=== PATIENT | male | born 1935 | race Caucasian/White ===

== ENCOUNTER 2016-06-30 17:07 | Emergency (ER) | payer BC, OTHER ==
[~2016-06-30] VITALS: Ht 165.1 cm; Wt 65.0 kg
[2016-06-30 17:16] VITALS: Ht 165.1 cm; Wt 65.0 kg
[2016-06-30] MEDS ORDERED: NICARDipine HCL 30 MG CAPSULE PO ONE (18:00)
[2016-06-30] MEDS ORDERED: ASPI-664 PO (18:30)
[2016-06-30] MEDS ORDERED: AMLO-147 PO (18:30)
[2016-06-30] MEDS ORDERED: TERA10CA42 PO (18:30)
[2016-06-30] MEDS ORDERED: VALS160T20 PO (18:31)
[2016-06-30] MEDS ORDERED: ATOR40TA68 PO (18:32)
[2016-06-30] MEDS ORDERED: CARV12.579 PO (18:32)
[2016-06-30] MEDS ORDERED: CLON0.2T5 PO (18:33)
[2016-06-30 19:30] LABS: CREATININE 4.5 mg/dl (0.61-1.24)
[2016-06-30 19:31] LABS: CALCIUM 9.7 mg/dl (8.4-10.2)
--- NOTE | 2016-06-30 19:48 | ERD ---
ER Documentation Chief Complaint Date/Time DATE: 06/30/16 TIME: 19:46 Chief Complaint HYPERTENSIVE 30 MIN INTO HD HPI This is a 80-year-old male who was at dialysis prior to arrival and is having some hypertension with systolic of 223. The patient says he is completely asymptomatic no headache no blurry vision no dizziness no chest pain or shortness of breath no diaphoresis no back or abdominal pain. He was sent here for evaluation. Again, he is stating to me that he has absolutely no symptoms and feels well ROS All systems reviewed and are negative except as per history of present illness. Medications Home Meds Reported Medications Clonidine Hcl* (Clonidine Hcl*) 0.2 Mg Tablet, 0.2 MG PO DAILY Y for HTN, TAB 06/30/16 Atorvastatin* (Atorvastatin*) 40 Mg Tablet, 40 MG PO QHS, #30 TAB 06/30/16 Carvedilol* (Carvedilol*) 12.5 Mg Tablet, 12.5 MG PO DAILY, #30 TAB 06/30/16 Valsartan* (Diovan*) 160 Mg Tablet, 160 MG PO DAILY, TAB 06/30/16 Terazosin Hcl* (Terazosin Hcl*) 10 Mg Capsule, 10 MG PO HS, CAP 06/30/16 Amlodipine Besylate* (Amlodipine Besylate*) 10 Mg Tablet, 10 MG PO DAILY, #30 TAB 06/30/16 Aspirin* (Aspirin* EC) 81 Mg Tablet.dr, 81 MG PO DAILY, TAB 06/30/16 Allergies Allergies: Coded Allergies: No Known Allergy (Unverified , 06/30/16) PMhx/Soc Hx Cardiac Disorders: Yes (HNT) Hx Miscellaneous Medical Probl: Yes (HD) Hx Alcohol Use: No Hx Substance Use: No Hx Tobacco Use: No Smoking Status: Unknown if ever smoked FmHx Family History: No coronary disease Physical Exam Vitals Vital Signs Date Time Temp Pulse Resp B/P Pulse Ox O2 Delivery O2 Flow Rate FiO2 06/30/16 19:22 66 16 144/50 100 Room Air 06/30/16 17:16 97.8 68 20 214/88 100 Physical Exam Const: Well-developed, well-nourished Head: Atraumatic, normocephalic Eyes: Normal Conjunctiva, PERRLA, EOMI, normal sclera, no nystagmus ENT: Normal External Ears, Nose and Mouth, moist mucus membranes. Neck: Full range of motion. No meningismus, no lymphadenopathy. Resp: Clear to auscultation bilaterally, no wheezing, rhonchi, rales Cardio: Regular rate and rhythm, no murmurs, S1 S2 present Abd: Soft, non tender x 4, non distended. Normal bowel sounds, no guarding or rebound, no pulsitile abdominal masses or bruits Skin: No petechiae or rashes, no ecchymosis , no maculopapular rash Back: No midline or flank tenderness Ext: No cyanosis, or edema, FROM x 4, normal inspection, neurovascularly intact x 4, right arm AV shunt with clamp on Neur: Awake and alert, STR 5/5 x 4, sensation intact x 4, no focal findings, cerebellum intact Psych: Normal Mood and Affect Result Diagram: 06/30/161904 Results 24 hrs Laboratory Tests Test 06/30/16 19:05 Anion Gap 18 Blood Urea Nitrogen 23mg/dl Calcium Level 9.7mg/dl Carbon Dioxide Level 26mmol/L Chloride Level 103mmol/L Creatinine 4.50mg/dl Glucose Level 143mg/dl Potassium Level 5.0mmol/L Sodium Level 142mmol/L Current Medications Medications (Trade) Dose Ordered Sig/Marium Route PRN Reason Start Time Stop Time Status Last Admin Dose Admin Nicardipine HCl (Cardene) 30 mg ONCE ONCE PO 06/30/16 18:00 06/30/16 18:01 DC 06/30/16 18:17 Procedures/MDM After Cardene p.o. the patient's blood pressure is 144/50. Spoke with Dr. Chamberlain the patient can be discharged home potassium is 5.0 Departure Diagnosis: Primary Impression: Hypertension Hypertension type: secondary to other renal disorders Qualified Code: I15.1 - Hypertension secondary to other renal disorders Condition: Stable Patient Instructions: High Blood Pressure (Hypertension) Referrals: NO PRIMARY,CARE PHYSICIAN (PCP) MARIZOL WELLINGTON DO Jun 30, 2016 19:48
[2016-06-30 20:08] VITALS: BP 161/57; PULSE 72; RESP 18; TEMP 98.2
== END 2016-06-30 20:10 | disposition home or self-care (01) ==
LOC: E/R 17:07
DX: I15.1 Hypertension secondary to other renal disorders (principal); R40.2142 Coma scale, eyes open, spontaneous, at arrival to emergency department; R40.2362 Coma scale, best motor response, obeys commands, at arrival to emergency department; R40.2252 Coma scale, best verbal response, oriented, at arrival to emergency department; Z79.82 Long term (current) use of aspirin; Z99.2 Dependence on renal dialysis
CPT/HCPCS: 80048; 99283

== ENCOUNTER 2016-12-03 15:07 | Emergency (ER) | END 2016-12-03 17:46 | disposition home or self-care (01) | DX: T82.868A Thrombosis due to vascular prosthetic devices, implants and grafts, initial encounter (principal); I12.9 Hypertensive chronic kidney disease with stage 1 through stage 4 chronic kidney disease, or unspecified chronic kidney disease; N18.9 Chronic kidney disease, unspecified; Y82.8 Other medical devices associated with adverse incidents; Z79.82 Long term (current) use of aspirin; Z99.2 Dependence on renal dialysis ==

== ENCOUNTER 2018-03-31 15:27 | Inpatient (IN) | END 2018-04-03 17:15 | DRG 280 ==

== ENCOUNTER 2018-04-06 19:12 | Inpatient (IN) | END 2018-04-11 16:20 | DRG 280 ==

== ENCOUNTER 2018-04-12 20:59 | Inpatient (IN) | payer BC ==
[~2018-04-12] VITALS: Ht 160 cm; Wt 73.1 kg
[~2018-04-12 20:59] MED LIST: ACET-2047 PO; ASPI-817 PO; ATOR40TA68 PO; CARV6.2579 PO; CLOP75TA28 PO; DOCU-144 PO; ENOX30DI10 SQ; EPOE40002 SC; HYDR-4011 PO; HYDR100T25 PO; ISOS30TA67 PO; LISI-471 PO; NEPH PO; NITR0.4T32 SL; ONDA4TAB13 PO; PROT946L PO; RANO500T2 PO; SEVE800T7 PO; TERA5CAP3 PO; TUBE5VIA3 ID
[2018-04-12 21:04] VITALS: Ht 160 cm; Wt 73.1 kg
[2018-04-12] MEDS ORDERED: SOD CHLORIDE 0.9% 1,000 ML IV ONE (21:30)
[2018-04-12] MEDS ORDERED: SODIUM CHLORIDE 0.9% 1L BAG IV* STA (23:22)
[2018-04-12] MEDS ORDERED: CEFEPIME 2GM/50 ML (PMX) 50 ML IVPB STA (23:22)
[2018-04-12] MEDS ORDERED: VANCOMYCIN 1 GM (PMX) 250 ML IVPB ONE (23:30)
--- NOTE | 2018-04-12 23:54 | ERD ---
ER Documentation Chief Complaint Chief Complaint BIB [id number] from SNF for hypotension HPI 82-year-old male brought in by rescue from group home facility for hypotension. Patient was literally placed in the sniff earlier today. Patient was recently admitted. I spoke to the admitting physician and she states the patient is a good candidate for hospice, however family is not yet ready to make this decision. Patient apparently has been admitted multiple times for similar complaints over the past few months. Reviewing EMR this seems to be the case. Upon arrival, patient is hypotensive and septic protocol was initially imme diately initiated ROS All systems reviewed and are negative except as per history of present illness. Medications Home Meds Active Scripts Ranolazine* (Ranexa*) 500 Mg Tab.sr.12h, 500 MG PO Q12 for 30 Days, #60 TAB Prov:DIMAS GILMORE MD 04/02/18 Isosorbide Mononitrate* (Isosorbide Mononitrate*) 30 Mg Tab.er.24h, 30 MG PO BID for 30 Days, #60 TAB Prov:DIMAS GILMORE MD 04/02/18 Clopidogrel Bisulfate (Clopidogrel) 75 Mg Tablet, 75 MG PO DAILY for 30 Days, #30 TAB Prov:DIMAS GILMORE MD 04/02/18 Reported Medications Tuberculin,Purif.prot.deriv. (Tubersol) 5 Tub Unit/0.1 Ml Vial, 5 TUB ID QHS, VIAL FOR TB SCREENING UNTIL 04/14/18 23:59 2ND STEP PPD 04/06/18 Ondansetron Hcl* (Zofran*) 4 Mg Tab, 4 MG PO Q6H PRN for NAUSEA AND OR VOMITING, TAB 04/06/18 Multivit/Ca Carb/B Cmplx/Fa* (Tabby-Cynthia*) 1 Tab Tab, 1 TAB PO DAILY, TAB 04/06/18 Protein Supplement (Promod) 946 Ml Liquid, 30 ML PO TID 04/06/18 Hydrocodone/Acetaminophen ([place] 5-325 Tablet) 1 Each Tablet, 1 EACH PO Q6H PRN for PAIN LEVEL 6-10, TAB 04/06/18 Enoxaparin Sodium* (Lovenox*) 30 Mg/0.3 Ml Disp.syrin, 30 MG SQ DAILY, SYR 04/06/18 Epoetin jason* (Epogen*) 4,000 Unit/1 Ml Vial, 4000 UNIT SC Q MON,WED,WED, VIAL 04/06/18 Docusate Sodium* (Colace*) 100 Mg Capsule, 100 MG PO Q12H PRN for CONSTIPATION, #30 CAP 04/06/18 Carvedilol* (Carvedilol*) 6.25 Mg Tablet, 6.25 MG PO BID, #60 TAB HOLD IF SBP<110 OR HR<70 04/06/18 Acetaminophen* (Acetaminophen*) 650 Mg Tablet, 650 MG PO Q6H PRN for PAIN 1- 08/26, #30 TAB 04/06/18 Terazosin Hcl* (Terazosin Hcl*) 5 Mg Capsule, 5 MG PO HS, CAP 03/31/18 Nitroglycerin* (Nitroglycerin* SL) 0.4 Mg Tab.subl, 0.4 MG SL Q5MIN PRN for CHEST PAIN, BOTTLE 03/31/18 Lisinopril* (Lisinopril*) 20 Mg Tablet, 20 MG PO DAILY, #30 TAB HOLD IF SBP<110 OR HR<70 03/31/18 Hydralazine Hcl* (Hydralazine Hcl*) 100 Mg Tablet, 100 MG PO TID, #90 TAB HOLD IF SBP<110 OR HR<70 03/31/18 Atorvastatin* (Atorvastatin*) 40 Mg Tablet, 40 MG PO QHS, #30 TAB 03/31/18 Aspirin* (Aspirin* EC) 81 Mg Tablet.dr, 81 MG PO DAILY, TAB 03/31/18 Sevelamer Carbonate* (Renvela*) 800 Mg Tablet, 1.6 GM PO WITH MEALS, TAB 03/31/18 Discontinued Reported Medications Clonidine Hcl* (Clonidine Hcl*) 0.2 Mg Tablet, 0.2 MG PO NEEDED PRN for IF SB P>180, TAB 03/31/18 Discontinued Scripts Carvedilol* (Carvedilol*) 6.25 Mg Tablet, 6.25 MG PO BID for 30 Days, #60 TAB Prov:DIMAS GILMORE MD 04/02/18 Allergies Allergies: Coded Allergies: No Known Allergy (Unverified , 03/31/18) PMhx/Soc History of Surgery: Yes Anesthesia Reaction: No Hx Neurological Disorder: No Hx Respiratory Disorders: Yes Hx Cardiac Disorders: Yes Hx Psychiatric Problems: No Hx Miscellaneous Medical Probl: Yes (pls see EMR) Hx Alcohol Use: No Hx Substance Use: No Hx Tobacco Use: No Smoking Status: Never smoker Physical Exam Vitals Vital Signs Date Temp Pulse Resp B/P (MAP) Pulse Ox O2 O2 Flow FiO2 Time Delivery Rate 04/12/18 98.0 69 20 98/52 (67) 97 Nasal 3.0 23:22 Cannula 04/12/18 98.0 65 20 88/49 (62) 97 Nasal 3.0 23:02 Cannula 04/12/18 98.0 67 20 97/67 (77) 97 Nasal 3.0 22:03 Cannula 04/12/18 Nasal 2 21:06 Cannula 04/12/18 93/65 (74) 21:05 04/12/18 65 20 77/36 (50) 97 21:04 04/12/18 98.0 65 24 77/36 (50) 96 Room Air 21:02 Physical Exam Const: No acute distress Head: Atraumatic Eyes: Normal Conjunctiva ENT: Normal External Ears, Nose and Mouth. Neck: Full range of motion. No meningismus. Resp: Clear to auscultation bilaterally Cardio: Regular rate and rhythm, no murmurs Abd: Soft, non tender, non distended. Normal bowel sounds Skin: No petechiae or rashes Back: No midline or flank tenderness Ext: No cyanosis, or edema Neur: Awake and alert Psych: Normal Mood and Affect Result Diagram: 04/12/18225004/12/182250 Results 24 hrs Laboratory Tests Test 04/12/18 21:53 04/12/18 22:42 04/12/18 22:51 POC Venous Lactate 0.8 mmol/L 2.1 mmol/L White Blood Count 16.3 10^3/ul Red Blood Count 3.07 10^6/ul Hemoglobin 9.3 g/dl Hematocrit 28.3 % Mean Corpuscular Volume 92.2 fl Mean Corpuscular Hemoglobin 30.3 pg Mean Corpuscular 32.9 g/dl Hemoglobin Concent Red Cell Distribution Width 15.8 % Platelet Count 224 10^3/UL Mean Platelet Volume 9.8 fl Immature Granulocytes % 0.600 % Neutrophils % 81.5 % Lymphocytes % 7.4 % Monocytes % 9.9 % Eosinophils % 0.4 % Basophils % 0.2 % Nucleated Red Blood Cells % 0.1 /100WBC Immature Granulocytes # 0.100 10^3/ul Neutrophils # 13.3 10^3/ul Lymphocytes # 1.2 10^3/ul Monocytes # 1.6 10^3/ul Eosinophils # 0.1 10^3/ul Basophils # 0.0 10^3/ul Nucleated Red Blood Cells # 0.0 10^3/ul Prothrombin Time 13.6 Sec Prothrombin Time Ratio 1.1 INR International 1.03 Normalized Ratio Activated Partial Thromboplast 35.8 Sec Time Sodium Level 134 mmol/L Potassium Level 4.1 mmol/L Chloride Level 95 mmol/L Carbon Dioxide Level 20 mmol/L Anion Gap 19 Blood Urea Nitrogen 69 mg/dl Creatinine 7.36 mg/dl Est Glomerular Filtrat mL/min Rate mL/min Glucose Level 126 mg/dl Calcium Level 7.9 mg/dl Total Bilirubin 0.0 mg/dl Direct Bilirubin 0.00 mg/dl Indirect Bilirubin 0.0 mg/dl Aspartate Amino 23 IU/L Transf (AST/SGOT) Alanine 17 IU/L Aminotransferase (ALT/SGPT) Alkaline Phosphatase 84 IU/L Troponin I 0.683 ng/ml Total Protein 6.3 g/dl Albumin 3.4 g/dl Globulin 2.90 g/dl Albumin/Globulin Ratio 1.17 Current Medications Medications Dose Sig/Marium Start Time Status Last (Trade) Ordered Route PRN Stop Time Admin Dose Reason Admin Sodium 1,000 ml @ Q1H ONCE 04/12/18 DC 04/12/18 Chloride 1,000 mls/hr IV 21:30 22:03 04/12/18 22:29 Sodium 2,190 ml BOLUS OVER 2 04/12/18 DC Chloride HOURS STAT 23:22 (NS) IV* 04/12/18 23:25 Cefepime HCl 50 ml @ ONCE STAT 04/12/18 100 mls/hr IVPB 23:22 04/12/18 23:51 Vancomycin 250 ml @ ONCE ONCE 04/12/18 HCl 125 mls/hr IVPB 23:30 04/13/18 01:29 IV Flush 3 ml PER 04/13/18 (NS 3 ml) PROTOCOL IV 00:00 Ondansetron 4 mg Q6H PRN 04/13/18 HCl (Zofran IV NAUSEA 00:00 Inj) AND/OR VOMITING 1 tab Q5M PRN 04/13/18 Nitroglycerin SL CHEST 00:00 PAIN (Nitroglyceri n (Sl Tab) 0.4 Mg) 650 mg Q6H PRN 04/13/18 Acetaminophen PO PAIN 00:00 (Tylenol LEVEL 1-3 OR Tab) FEVER 1 tab Q6H PRN 04/13/18 Acetaminophen PO PAIN 00:00 / LEVEL 4-6 Hydrocodone Bitart ([place] (5/325)) 2 tab Q6H PRN 04/13/18 Acetaminophen PO PAIN 00:00 / LEVEL 7-10 Hydrocodone Bitart ([place] (5/325)) Docusate 100 mg Q12H PRN 04/13/18 UNV Sodium PO 00:00 (Colace) CONSTIPATION Magnesium 30 ml DAILY PRN 04/13/18 Hydroxide PO 00:00 (Milk Of Mag) CONSTIPATION Heparin 5,000 unit Q8 SC 04/13/18 Sodium 06:00 (Porcine) (Heparin (5000 Units/1ml)) 650 mg Q6H PRN 04/13/18 UNV Acetaminophen PO PAIN 00:00 (Tylenol 1-5/10 Tab) Aspirin 81 mg DAILY PO 04/13/18 (Halfprin) 09:00 40 mg QHS PO 04/13/18 Atorvastatin 21:00 Calcium (Lipitor) Carvedilol 6.25 mg BID PO 04/13/18 (Coreg) 09:00 Clopidogrel 75 mg DAILY PO 04/13/18 Bisulfate 09:00 (plaVIX) Docusate 100 mg Q12H PRN 04/13/18 Sodium PO 00:00 (Colace) CONSTIPATION 1 tab Q6H PRN 04/13/18 UNV Acetaminophen PO PAIN 00:00 / LEVEL 6-10 Hydrocodone Bitart ([place] (5/325)) Multivit/Ca 1 tab DAILY PO 04/13/18 Carb/ B 09:00 Cmplx/FA/Pren at (Tabby-Cynthia) Ranolazine 1,000 mg Q12 PO 04/13/18 (Ranexa) 09:00 Sevelamer 1.6 gm WITH MEALS 04/13/18 Carbonate PO 08:00 (Renvela) Vancomycin VANCOMYCIN PER 04/13/18 HCl (Vanco PER PHARMACY PROTOCOL XX 00:00 Iv Per Pharmacy) Procedures/MDM EKG: Rate/Rhythm: [Normal Sinus Rhythm] QRS, ST, T-waves: [No changes consistent w/ acute ischemia] Impression: [No evidence of ischemia or arrhythmia] Chest X-ray 1V Interpreted by me: Soft Tissue: No acute abnormalities Bones: No acute abnormalities Mediastinum/Cardiac Silhouette/Lungs: Right lung base atelectasis versus infiltrate Patient's infectious symptoms have not stabilized and the patient is at risk of rapid decompensation. The patient will be admitted for careful hydration, antibiotic therapy, and infectious source control. Severe Sepsis Assessment: Infectious Source: Likely pneumonia End organ damage indicated by: [Lactate > 2.0 mmol/L Hypotension( SBP < 90 or >40 mmHG drop or MAP < 65) Severe Sepsis Managment: Blood Cultures X 2 before broad spectrum antibiotics initiated within 3 hours of recognition which was on upon arrival 30 ml/kg NS bolus Completed Initial Lactate: 2.1 Repeat Lactate pending Critical Care: Time: [XOXOXO] minutes Treatments/Evaluations: Emergent fluid management, while maintaining close respiratory support. Immediate broad spectrum antibiotic therapy. Simultaneous assessment for possible sources in order to direct therapy. Consideration for invasive and chemical support to prevent respiratory or cardiac collapse. Perfusion Reassessment for Septic Shock: Vital signs stable Heart Exam: [Tachycardic] Lung Exam: [No Crackles] Capillary Refill: [Delayed] Peripheral Pulses: [Radially present] Skin: [Mottled, pale] Accepting Care Team: Current data and ongoing care discussed. Time: 2300 Primary Provider: IPA physician Consulting: Deferred to inpatient team Outstanding Data: none Departure Diagnosis: Primary Impression: Hypotension Hypotension type: unspecified hypotension type Qualified Codes: I95.9 - Hypotension, unspecified Additional Impression: Sepsis Sepsis type: sepsis due to unspecified organism Qualified Codes: A41.9 - Sepsis, unspecified organism Condition: Serious IDA ROMAN Apr 12, 2018 23:54
--- NOTE | 2018-04-12 23:58 | NUR ---
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 Vancomycin and Cefepime ordered in ER x 1. and RX to f/u dosing of vancomycin vs r/o sepsis Ht: 5'4" Wt: 73 kg Bun/Cr 69/7.36 WBC: 16.3 A/P: 1) Renal failure 2) Pt rec'd vancomycin 1 gm in ER. Will check random level on 04/14 with am lab. 3) Rx will f/u per level
[2018-04-13] VITALS (12 sets, daily range): BP systolic 90–159; BP diastolic 41–72; PULSE 60–73; RESP 19–30
[2018-04-13] MEDS ORDERED: MAGNESIUM HYDROXIDE 30ML CUP PO PRN
[2018-04-13] MEDS ORDERED: NACL 0.9% 3 ML SYG IV SCH
[2018-04-13] MEDS ORDERED: DOCUSATE SODIUM 100 MG CAP PO PRN ×2
[2018-04-13] MEDS ORDERED: NITROGLYCERIN (SL) 0.4 MG TAB SL PRN
[2018-04-13] MEDS ORDERED: ACETAMINOPHEN 325 MG TAB PO PRN ×2
[2018-04-13] MEDS ORDERED: ONDANSETRON 4 MG INJ IV PRN
[2018-04-13] MEDS ORDERED: VANCOMYCIN IV PER PHARMACY XX SCH
[2018-04-13] MEDS ORDERED: HYDROCODONE/APAP (5/325) TAB PO PRN ×3
[2018-04-13] MEDS ORDERED: SOD CHLORIDE 0.9% 1,000 ML IV ONE (01:30)
[2018-04-13] MEDS: ALBUMIN HUMAN 25% 100 ML IV SCH ×2 (02:24→03:27)
[2018-04-13] MEDS: HEPARIN 5,000 UNIT/1 ML VIAL SC SCH ×3 (06:24→20:33)
--- NOTE | 2018-04-13 07:02 | NUR ---
end of shift noted: received pt from ER around 0506 am, alert oriented x2, able to understand and follow simple command in tagalog, unable to ambulated, pt was trying to getting out of bed, pt fell on last admission per report, pt is 1:1 sitter now, skin intact, pt was received vanco and cefepime in ER for sepsis, dr. Solis already put order. skin intact, continue to monitor pt
--- NOTE | 2018-04-13 08:23 | CONS ---
Date/Time of Note Date/Time of Note DATE: 04/13/18 TIME: 08:20 Assessment/Plan Assessment/Plan Chief Complaint/Hosp Course 1. S/P Non-ST elevation myocardial infarction 2. Known history of severe coronary artery disease including left main coronary artery disease 3. Renal failure on dialysis 4. Hypertension 5. Dyslipidemia 6. History of syncope and carotid stenosis 7. 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 Anemia 9. Hyperkalemia 10. Congestive heart failure acute on chronic secondary to diastolic and systolic heart failure 11. COPD 12. pleural effusion 13. Hypotension and lactic acidosis possible sepsis Recommendations: Continue with aspirin/Plavix. We will continue to medical optimization. Aspirin Plavix will be continued for now off the Hytrin and try to increase the beta-angel as tolerated Statins as tolerated BiPAP and oxygen support as needed NTG prn CODE STATUS is chemical code only now so no intervention is advised. Thank you for his referral. We will continue to follow along with you BRIAN MENCHACA MD [facility] Consultation Date/Type/Reason Admit Date/Time Apr 12, 2018 at 23:32 Date of Consultation: Apr 13, 2018 Type of Consult CV Reason for Consultation CAD Requesting Provider: JOSELIN MAK Hx of Present Illness Interventional cardiology follow-up progress note Subjective: Discussed with the staff. Rhythm was reviewed. Patient remains ventricular paced rhythm. He denies any chest pain or pressure no shortness of breath to me. Patient was discharged to a nursing facility however was brought in last night apparently due to hypotension in the 70s. Patient currently drowsy and sleepy General: Elderly gentleman in no respiratory distress HEENT: NC/AT. pupils are equal. round. NECK: . no stridor. CV: RRR. systolic murmur; no gallop or rubs. PULM: no wheezing . Rhonchi. GI: SOFT, NT, ND, no rebound or guarding Extremity: trace B/L LE edema. no clubbing. neuro: Drowsy but follows commands responds appropriately Psych: calm and pleasant rectal: deferred EKG shows paced rhythm Most recent echocardiogram which was personally reviewed has shown Normal left ventricular systolic function. Normal left ventricular cavity size. Sigmoid septum. Ejection fraction is visually estimated at 60 %. Tissue Doppler/Mitral Doppler indices are consistent with impaired relaxation (Stage I diastolic dysfunction). There is mild enlargement of left atrium. Mild mitral leaflet calcification. Mild mitral annular calcification. Moderate mitral valve regurgitation. The regurgitation jet is eccentrically directed which may underestimate the severity of mitral regurgitation. No significant aortic stenosis or insufficiency. Aortic cusps appear mildly calcified. Trace aortic valve regurgitation. Normal appearance of the tricuspid valve. Estimated peak PA systolic pressure 46 mmHg. There is mild tricuspid regurgitation. Past Medical History Medications Current Medications IV Flush (NS 3 ml) 3 ml PER PROTOCOL IV ; Start 04/13/18 at 00:00 Ondansetron HCl (Zofran Inj) 4 mg Q6H PRN IV NAUSEA AND/OR VOMITING; Start 04/13/18 at 00:00 Nitroglycerin (Nitroglycerin (Sl Tab) 0.4 Mg) 1 tab Q5M PRN SL CHEST PAIN; Start 04/13/18 at 00:00 Acetaminophen (Tylenol Tab) 650 mg Q6H PRN PO PAIN LEVEL 1-3 OR FEVER; Start 04/13/18 at 00:00 Acetaminophen/ Hydrocodone Bitart (Calvin (5/325)) 1 tab Q6H PRN PO PAIN LEVEL 4-6; Start 04/13/18 at 00:00 Acetaminophen/ Hydrocodone Bitart (Calvin (5/325)) 2 tab Q6H PRN PO PAIN LEVEL 7-10 Last administered on 04/12/18at 23:58; Admin Dose 2 TAB; Start 04/13/18 at 00:00 Magnesium Hydroxide (Milk Of Mag) 30 ml DAILY PRN PO CONSTIPATION; Start 04/13/18 at 00:00 Heparin Sodium (Porcine) (Heparin (5000 Units/1ml)) 5,000 unit Q8 SC Last administered on 04/13/18at 06:24; Admin Dose 5,000 UNIT; Start 04/13/18 at 06:00 Aspirin (Halfprin) 81 mg DAILY PO ; Start 04/13/18 at 09:00 Atorvastatin Calcium (Lipitor) 40 mg QHS PO ; Start 04/13/18 at 21:00 Carvedilol (Coreg) 6.25 mg BID PO ; Start 04/13/18 at 09:00 Clopidogrel Bisulfate (plaVIX) 75 mg DAILY PO ; Start 04/13/18 at 09:00 Docusate Sodium (Colace) 100 mg Q12H PRN PO CONSTIPATION; Start 04/13/18 at 00:00 Multivit/Ca Carb/ B Cmplx/FA/Prenat (Tabby-Cynthia) 1 tab DAILY PO ; Start 04/13/18 at 09:00 Ranolazine (Ranexa) 1,000 mg Q12 PO ; Start 04/13/18 at 09:00 Sevelamer Carbonate (Renvela) 1.6 gm WITH MEALS PO ; Start 04/13/18 at 08:00 Vancomycin HCl (Vanco Iv Per Pharmacy) VANCOMYCIN PER PHARMACY PER PROTOCOL XX ; Start 04/13/18 at 00:00 Allergies: Coded Allergies: No Known Allergy (Unverified , 03/31/18) Social History Smoking Status: Never smoker Exam/Review of Systems Vital Signs Vitals Vital Signs Date Temp Pulse Resp B/P (MAP) Pulse Ox O2 O2 Flow FiO2 Time Delivery Rate 04/13/18 67 30 105/50 96 07:38 (68) 04/13/18 Nasal 2.0 06:03 Cannula 04/13/18 97.9 05:10 Medications Medications Current Medications IV Flush (NS 3 ml) 3 ml PER PROTOCOL IV ; Start 04/13/18 at 00:00 Ondansetron HCl (Zofran Inj) 4 mg Q6H PRN IV NAUSEA AND/OR VOMITING; Start 04/13/18 at 00:00 Nitroglycerin (Nitroglycerin (Sl Tab) 0.4 Mg) 1 tab Q5M PRN SL CHEST PAIN; Start 04/13/18 at 00:00 Acetaminophen (Tylenol Tab) 650 mg Q6H PRN PO PAIN LEVEL 1-3 OR FEVER; Start 04/13/18 at 00:00 Acetaminophen/ Hydrocodone Bitart (Calvin (5/325)) 1 tab Q6H PRN PO PAIN LEVEL 4-6; Start 04/13/18 at 00:00 Acetaminophen/ Hydrocodone Bitart (Calvin (5/325)) 2 tab Q6H PRN PO PAIN LEVEL 7-10 Last administered on 04/12/18at 23:58; Admin Dose 2 TAB; Start 04/13/18 at 00:00 Magnesium Hydroxide (Milk Of Mag) 30 ml DAILY PRN PO CONSTIPATION; Start 04/13/18 at 00:00 Heparin Sodium (Porcine) (Heparin (5000 Units/1ml)) 5,000 unit Q8 SC Last administered on 04/13/18at 06:24; Admin Dose 5,000 UNIT; Start 04/13/18 at 06:00 Aspirin (Halfprin) 81 mg DAILY PO ; Start 04/13/18 at 09:00 Atorvastatin Calcium (Lipitor) 40 mg QHS PO ; Start 04/13/18 at 21:00 Carvedilol (Coreg) 6.25 mg BID PO ; Start 04/13/18 at 09:00 Clopidogrel Bisulfate (plaVIX) 75 mg DAILY PO ; Start 04/13/18 at 09:00 Docusate Sodium (Colace) 100 mg Q12H PRN PO CONSTIPATION; Start 04/13/18 at 00:00 Multivit/Ca Carb/ B Cmplx/FA/Prenat (Tabby-Cynthia) 1 tab DAILY PO ; Start 04/13/18 at 09:00 Ranolazine (Ranexa) 1,000 mg Q12 PO ; Start 04/13/18 at 09:00 Sevelamer Carbonate (Renvela) 1.6 gm WITH MEALS PO ; Start 04/13/18 at 08:00 Vancomycin HCl (Vanco Iv Per Pharmacy) VANCOMYCIN PER PHARMACY PER PROTOCOL XX ; Start 04/13/18 at 00:00 BRIAN MENCHACA MD Apr 13, 2018 08:23
[2018-04-13] MEDS ORDERED: ASPIRIN (EC) 81 MG TAB PO SCH (09:00)
[2018-04-13] MEDS ORDERED: MULTIVIT/CA CARB/B CMPLX/FA TAB PO SCH (09:00)
[2018-04-13] MEDS ORDERED: CLOPIDOGREL 75 MG TAB PO SCH (09:00)
[2018-04-13] MEDS: RANOLAZINE (SR) 500 MG TAB PO SCH ×2 (09:36→20:32)
[2018-04-13] MEDS: SEVELAMER CARBONATE 0.8 GM PKT PO SCH ×3 (09:49→17:40)
--- NOTE | 2018-04-13 12:26 | HP ---
Date/Time of Note Date/Time of Note DATE: 04/13/18 TIME: 12:07 Assessment/Plan VTE Prophylaxis Risk score (from [facility])>0 risk: 8 SCD applied (from Ns): Yes Pharmacological prophylaxis: LMWH, heparin Lines/Catheters IV Catheter Type ([facility] [place] Assessment/Plan Assessment/Plan 82-year-old male with: 1. ? Sepsis unclear source, resolved hypotension but still with lethargy, leukocytosis. Patient also had lactic acidosis on arrival in setting of hypotension. WBC trending down, blood pressure now stable. On broad-spectrum antibiotics. CT chest on 04/10 did show right small pleural effusion, some atelectasis and cannot exclude infiltrates on the right, WBC was slightly elevated at 14.5, p atient was started on Levaquin for possible pneumonia and discharged on Levaquin. When he came back to the ER yesterday with hypotension, leukocytosis and suspicion for sepsis, chest x-ray was done and the right lung is now clear he does have left-sided atelectasis but no signs of acute pneumonia. Will repeat chest x-ray in case patient did have an episode of of aspiration. WBC trending down slowly this morning, will maintain him on cefepime and vancomycin while awaiting blood cultures. CAT scan of the head abdomen and pelvis will also be done since patient seems to be lethargic and we do not have a clear source for an acute infection currently. 2. Chronic congestive heart failure combination of diastolic and systolic. Currently fairly euvolemic. Also with end-stage renal disease on hemodialysis T/T/S for volume Patient currently fairly euvolemic even hypovolemic on admission, status post almost 3 L IV fluid bolus and also albumin bolus. Blood pressure much more stable. Will monitor volume status, HD due tomorrow. On maximum medical therapy for end-stage cardiac disease, status post NSTEMI on recent admission. 3. Severe coronary artery disease, 4 vessels, not a surgical candidate because high risk and also patient is chemical code, he is not interested in aggressive/heroic resuscitation. He declines intubation, defibrillation or compressions. Chemical code. Continue medical management. Continue antiplatelets, Imdur, beta blockers as blood pressure tolerates and Ranexa. 4. End-stage renal disease, on hemodialysis, last dialysis was on Wednesday, however patient came in with volume overload, hyperkalemia and uremia. Dialyzed twice over the past 2 days for volume overload and hyperkalemia. Now electrolytes stable and volume status stable on this admission. Patient having HD tomorrow as scheduled. Off all ADRIAN inhibitors, renally dose all medications. 5. Hypertension: Continue current medications. Appreciate cardiology recommendation, please avoid ADRIAN inhibitors and amlodipine. 6. Status post cardiac pacemaker due to episode of bradyarrhythmia that led to syncope and collapse approximately 3 weeks ago, patient had pacemaker placed at [facility]. Stable 7. Hyperlipidemia: Continue statin therapy 8. Encephalopathy, toxic versus metabolic. Patient is due for dialysis tomorrow. He is under broad-spectrum antibiotics for possible infection and sepsis. Although etiology is not clear yet. CT head pending. Follow-up cultures. Prophylaxis: Heparin subcu for DVT prophylaxis, Pepcid for GI prophylaxis. Disposition: Patient on telemetry, HD tomorrow, broad-spectrum antibiotics, follow-up results of CT head and CT abdomen pelvis. Chemical code only. Result Diagram: 04/13/18 0529 04/13/18 0529 Results 24hrs Laboratory Tests Test 04/12/18 21:53 04/12/18 22:42 04/12/18 22:51 04/13/18 02:30 POC Venous 0.8 2.1 *H Lactate White Blood 16.3 H Count Red Blood Count 3.07 L Hemoglobin 9.3 L Hematocrit 28.3 L Mean Corpuscular 92.2 Volume Mean Corpuscular 30.3 Hemoglobin Mean Corpuscular 32.9 Hemoglobin Kellie nt Red Cell 15.8 H Distribution Width Platelet Count 224 Mean Platelet 9.8 Volume Immature 0.600 H Granulocytes % Neutrophils % 81.5 H Lymphocytes % 7.4 L Monocytes % 9.9 Eosinophils % 0.4 Basophils % 0.2 Nucleated Red 0.1 H Blood Cells % Immature 0.100 H Granulocytes # Neutrophils # 13.3 H Lymphocytes # 1.2 Monocytes # 1.6 H Eosinophils # 0.1 Basophils # 0.0 Nucleated Red 0.0 Blood Cells # Prothrombin Time 13.6 Prothrombin Time 1.1 Ratio INR 1.03 International Normalized Ratio Activated 35.8 H Partial Thrombop last Time Sodium Level 134 L Potassium Level 4.1 Chloride Level 95 L Carbon Dioxide 20 L Level Anion Gap 19 H Blood Urea 69 H Nitrogen Creatinine 7.36 H Est Glomerular Filtrat Rate mL/min Glucose Level 126 Calcium Level 7.9 L Total Bilirubin 0.0 L Direct Bilirubin 0.00 Indirect 0.0 Bilirubin Aspartate Amino 23 Transf (AST/SGOT ) Alanine 17 Aminotransferase (ALT/SGPT) Alkaline 84 Phosphatase Troponin I 0.683 *H Total Protein 6.3 Albumin 3.4 Globulin 2.90 Albumin/Globulin 1.17 Ratio Lactic Acid 3.6 *H Level Test 04/13/18 05:29 04/13/18 08:10 White Blood 15.5 H Count Red Blood Count 2.82 L Hemoglobin 8.5 L Hematocrit 26.6 L Mean Corpuscular 94.3 Volume Mean Corpuscular 30.1 Hemoglobin Mean Corpuscular 32.0 Hemoglobin Kellie nt Red Cell 15.9 H Distribution Width Platelet Count 197 Mean Platelet 9.8 Volume Immature 0.600 H Granulocytes % Neutrophils % 79.9 H Lymphocytes % 8.2 L Monocytes % 10.4 Eosinophils % 0.7 Basophils % 0.2 Nucleated Red 0.0 Blood Cells % Immature 0.090 H Granulocytes # Neutrophils # 12.4 H Lymphocytes # 1.3 Monocytes # 1.6 H Eosinophils # 0.1 Basophils # 0.0 Nucleated Red 0.0 Blood Cells # Sodium Level 139 Potassium Level 4.1 Chloride Level 98 Carbon Dioxide 19 L Level Anion Gap 22 H Blood Urea 75 H Nitrogen Creatinine 7.87 H Est Glomerular Filtrat Rate mL/min Glucose Level 102 Calcium Level 7.7 L Magnesium Level 2.4 Lactic Acid 1.2 Level Creatine Kinase 672 H Creatine Kinase 1.1 Index Creatinine 7.35 H Kinase MB (Mass) Troponin I 0.472 *H HPI/ROS Admit Date/Time Admit Date/Time Apr 12, 2018 at 23:32 Hx of Present Illness Chief complaint: Hypotension History of presenting illness: 82-year-old male with known end-stage renal disease on hemodialysis, severe coronary artery disease not candidate for any intervention on medical management at this point, recently discharged, actually 24 hours prior to this presentation in the ER from [facility] facility. The patient was discharged on 04/11 after an admission for CHF exacerbation, non-ST elevation NH and hyperkalemia. Patient was treated appropriately and discharged to a correction facility for physical therapy mainly. At the time of discharge she was also discharged on Levaquin for possible right lower lobe pneumonia reported on CAT scan and a WBC of 14.5 at the time. Patient went to correction facility and was sent back within 24 hours with reported hypotension. Patient is severely hypertensive actually on multiple agents, in the emergency department his first lactic acid was normal at 0.8 and within 45 minutes the second lactic acid was up to 2.1. He was given IV fluid boluses and albumin bolus and her blood pressure stabilized. All his blood pressure medications are on hold. Repeat chest x-ray shows improved lung winn, no right lobe infiltrates anymore, atelectasis left lower base. There is no clear source for sepsis at this point but patient is started on broad-spectrum antibiotics given presentation with hemodynamic instability and elevated WBC with lactic acid above 2. Currently on telemetry, patient remains afebrile, WBC/15.5. He is now on cefepime and vancomycin. Source of infection if any is still unclear. CAT scan of the abdomen and pelvis will be done. He is encephalopathic and confused, CT head is pending. He is euvolemic and electrolytes are stable therefore no need for emergent dialysis, next HD will be tomorrow as scheduled. It is unclear if the patient did have an episode of aspiration or genitourinary infection which would be difficult to diagnose since he does not make urine. We will continue broad-spectrum antibiotics including vancomycin. Monitor cardiac enzymes, blood pressure and mental status. Appreciate recommendations from cardiology, nephrology at this time. ROS Constitutional: disoriented Eyes: no complaints ENT: no complaints Respiratory: no complaints Cardiovascular: no complaints Gastrointestinal: no complaints Genitourinary: no complaints Musculoskeletal: no complaints Skin: no complaints Neurologic: confusion, other (lethargy) Endocrine: no complaints Lymphatic: no complaints Psychological: no complaints Immunologic: no complaints PMH/Family/Social Past Medical History NSTEMI on last admission. End-stage renal disease Severe coronary artery disease, patient not a candidate for any interventions unfortunately and also is a chemical code. He is on medical treatment for the past 2-3 years now. Bradyarrhythmia, status post pacemaker 3 weeks ago Carotid atherosclerosis, PAD Hyperlipidemia Hypertension Medications Current Medications IV Flush (NS 3 ml) 3 ml PER PROTOCOL IV ; Start 04/13/18 at 00:00 Ondansetron HCl (Zofran Inj) 4 mg Q6H PRN IV NAUSEA AND/OR VOMITING; Start 04/13/18 at 00:00 Nitroglycerin (Nitroglycerin (Sl Tab) 0.4 Mg) 1 tab Q5M PRN SL CHEST PAIN; Start 04/13/18 at 00:00 Acetaminophen (Tylenol Tab) 650 mg Q6H PRN PO PAIN LEVEL 1-3 OR FEVER; Start 04/13/18 at 00:00 Acetaminophen/ Hydrocodone Bitart ([place] (5/325)) 1 tab Q6H PRN PO PAIN LEVEL 4-6; Start 04/13/18 at 00:00 Acetaminophen/ Hydrocodone Bitart ([place] (5/325)) 2 tab Q6H PRN PO PAIN LEVEL 7-10 Last administered on 04/12/18at 23:58; Admin Dose 2 TAB; Start 04/13/18 at 00:00 Magnesium Hydroxide (Milk Of Mag) 30 ml DAILY PRN PO CONSTIPATION; Start 04/13 at 00:00 Heparin Sodium (Porcine) (Heparin (5000 Units/1ml)) 5,000 unit Q8 SC Last administered on 04/13/18at 06:24; Admin Dose 5,000 UNIT; Start 04/13/18 at 06:00 Aspirin (Halfprin) 81 mg DAILY PO Last administered on 04/13/18at 09:36; Admin Dose 81 MG; Start 04/13/18 at 09:00 Atorvastatin Calcium (Lipitor) 40 mg QHS PO ; Start 04/13/18 at 21:00 Carvedilol (Coreg) 6.25 mg BID PO ; Start 04/13/18 at 09:00 Clopidogrel Bisulfate (plaVIX) 75 mg DAILY PO Last administered on 04/13/18at 0 9:36; Admin Dose 75 MG; Start 04/13/18 at 09:00 Docusate Sodium (Colace) 100 mg Q12H PRN PO CONSTIPATION; Start 04/13/18 at 00:00 Multivit/Ca Carb/ B Cmplx/FA/Prenat (Tabby-Cynthia) 1 tab DAILY PO Last administered on 04/13/18at 09:36; Admin Dose 1 TAB; Start 04/13/18 at 09:00 Ranolazine (Ranexa) 1,000 mg Q12 PO Last administered on 04/13/18at 09:36; Admin Dose 1,000 MG; Start 04/13/18 at 09:00 Sevelamer Carbonate (Renvela) 1.6 gm WITH MEALS PO Last administered on 04/13/18at 09:49; Admin Dose 1.6 GM; Start 04/13/18 at 08:00 Vancomycin HCl (Vanco Iv Per Pharmacy) VANCOMYCIN PER PHARMACY PER PROTOCOL XX ; Start 04/13/18 at 00:00 Epoetin Wei (Epogen (Esrd)) 10,000 units MoWeFr@17 SC ; Start 04/13/18 at 17:00 Coded Allergies: No Known Allergy (Unverified , 03/31/18) Past Surgical History Status post right upper extremity fistula for HD, placed 2-3 years ago Status post angiogram 2 years ago with findings of 4 vessel disease Status post pacemaker placement approximately 3-4 weeks ago Family History Significant Family History: no pertinent family hx Social History Alcohol Use: none Smoking Status: Never smoker Drug Use: none Exam/Review of Systems Vital Signs Vitals Vital Signs Date Temp Pulse Resp B/P (MAP) Pulse Ox O2 O2 Flow FiO2 Time Delivery Rate 04/13/18 98.7 66 20 101/50 99 11:45 (67) 04/13/18 Nasal 2.0 06:03 Cannula Exam Constitutional: alert, frail, other (Lethargic easily arousable.) Respiratory: clear to auscultation, normal air movement Cardiovascular: regular rate and rhythm, nl pulses, other (Paced) Gastrointestinal: soft, non-tender Musculoskeletal: nl extremities to inspection Extremities: normal pulses, other (No edema, clubbing or cyanosis) Neurological: BRAND LEADER II-XII intact, confused, lethargic (Easily arousable) Additional Comments PROCEDURE: XR Chest. CLINICAL INDICATION: Shortness of breath. TECHNIQUE: Single frontal view. COMPARISON: April 09, 2018. FINDINGS: There is mild left basilar atelectasis. The lungs are otherwise clear. The heart size is normal. There is calcification in the aorta consistent with atherosclerosis. There is a left-sided dual lead permanent pacemaker. A vascular stent is present in the right axillary region. There is no pleural effusion. There is no pneumothorax. IMPRESSION: 1. Mild left basilar atelectasis. 2. Atherosclerosis. 3. Left-sided dual lead permanent pacemaker. 4. Stent in the right axillary region. 5. Otherwise unremarkable chest radiograph. RPTAT: QQ .Nik De La Cruz MD, MD Date Time Electronically viewed and signed by .Nik De La Cruz MD, on 04/12/2018 21:40 JOSELIN MAK Apr 13, 2018 12:26
[2018-04-13] MEDS ORDERED: CEFEPIME 2GM/50 ML (PMX) 50 ML IVPB SCH (12:30)
--- NOTE | 2018-04-13 12:49 | CONS ---
DATE OF ADMISSION: 04/12/2018 DATE OF CONSULTATION: 04/13/2018 TYPE OF CONSULTATION: Renal. Thank you very much for allowing me to evaluate this 82-year-old male readmitted yesterday with histo ry of hypotension and as you know chronic renal insufficiency. HISTORICAL EVENTS: As you well know, this patient was discharged home on 04/11/2018 after undergoing an uneventful dialysis. Because of notable hypotension, he was readmitted here yesterday. Sepsis i s a concern. Cultures have been obtained and antibiotics provided. He is presently comfortable with out shortness of breath, nausea, vomiting, abdominal or chest pain. PAST MEDICAL HISTORY: Includes: 1. Known coronary artery disease. 2. Chronic renal failure on dialysis. 3. Hypertension. 4. Hyperlipidemia. 5. History of sick sinus syndrome with a pacemaker in place. 6. History of anemia. 7. COPD. PRESENT MEDICATIONS: Include: 1. Cefepime. 2. Vancomycin. 3. Aspirin. 4. Lipitor 40. 5. Coreg 6.25 b.i.d. 6. Plavix 75 mg per day. 7. Heparin 5000 q.8. 8. Ranexa 1000 mg q.12. 9. Renvela 1.6 g with meals. PHYSICAL EXAMINATION: VITAL SIGNS: BP 105/50, pulse was 66, respirations were 18. He was afebrile. HEENT: Eyes: Extraocular muscles were full. Nose, mouth and throat are normal. NECK: Supple. There was no jugular venous distention, thyroid enlargement or adenopathy. LUNGS: Reduced breath sounds. HEART: Rhythm is slightly irregular. No third sound. ABDOMEN: Slight distention. Liver and spleen are not palpable. EXTREMITIES: No edema. Flanks have no edema. LABORATORY AND DIAGNOSTIC STUDIES: Hematocrit 28.3 on 04/12/2018, 26.6 on 04/13/2018, white count wa s normal, platelet count was normal. Chemistries on admission and electrolytes were normal. BUN 69, creatinine 7.36. Potassium was normal today. Lactic acid was increased. Troponin was 0.683. IMPRESSION: 1. Chronic renal failure. At this point, he does not need any dialytic intervention. We will plan on doing the same tomorrow. 2. Anemia secondary to renal insufficiency. Iron stores will be evaluated. Epogen was ordered. 3. Prior non-ST segment myocardial infarction. 4. History of sick sinus syndrome, pacemaker in place. Dictated By: JOSEPH ALAMO MD MR/JOSE Conf#: [id number] DID#: [id number] CC: JOSELIN MAK MD; JOSE RAFAEL FALL MD;*End*
[2018-04-13] MEDS ORDERED: EPOETIN 10000 UNITS/1 ML INJ (ESRD) SC SCH (17:00)
[2018-04-13] MEDS ORDERED: CEFEPIME 1GM/50 ML IVPB SCH (17:00)
--- NOTE | 2018-04-13 19:00 | NUR ---
EOSS A&Ox2. Dx Sepsis. Lactic 3.6 and SBP in the 60s. Albumin given IN the ER. Then transferred the telemetry floor SBP in the 100-110s and lactic 1.2. Dialysis scheduled for tomorrow 04/14/18. Confirmation #[id number]. CT of brain and CT abdomen done. Bed brakes on, side rails up, call light within reach. Stable vital signs. Will endorse to shift supervisor.
--- NOTE | 2018-04-13 19:10 | NUR ---
NURSE'S NOTES: Received in bed alert but confused and disoriented; reminders and reorientation provided during care. Maintained bedrest for generalized weakness. VS stable with casualty underwriter showing SR=62. IV heplock intact. Family and sitter at bedside. Kept clean and comfortable. All needs anticipated and attended promptly.
[2018-04-13] MEDS ORDERED: ATORVASTATIN 40 MG TAB PO SCH (21:00)
[2018-04-14] VITALS: PULSE 68
[2018-04-14 03:35] VITALS: BP 109/52; PULSE 68; RESP 18
--- NOTE | 2018-04-14 03:50 | NUR ---
NURSE'S NOTES: Dr. Saldaña, stereoptic projection topographer for Dr. Solis, notified regarding witnessed seizure x 19seconds with BP 104/49 and SR=62. with new order to give IV Keppra noted and carried out.
[2018-04-14 04:00] VITALS: PULSE 68
[2018-04-14] MEDS ORDERED: LEVETIRACETAM 500 MG (PMX) 100 ML IVPB SCH (05:00)
--- NOTE | 2018-04-14 05:45 | NUR ---
NURSE'S NOTES: Re-inserted IV heplock on LH x1 attempt with good blood backflow. Pt witnessed having seizure [id number]; oxygen via N/C raised to 100%. Pt stopped breathing after the seizure and no pulse noted. Chase Man called; pt on chemical code status. Code team arrived and meds given. Zac, tan, notified and clarified code status. Son claim the pt does not want to be intubated but okay for meds and chest compression; code team notified. Son claim he's on his way to the hospital. Dr Saldaña notified of pt status with order to transfer pt to ICU and to start IVF; noted and carried out. Code team notified. Pt transferred to ICU.
[2018-04-14] MEDS: HEPARIN 5,000 UNIT/1 ML VIAL SC SCH (05:59)
[2018-04-14 06:22] VITALS: PULSE 68
[2018-04-14] MEDS ORDERED: SOD CHLORIDE 0.9% 1,000 ML IV SCH (07:00)
--- NOTE | 2018-04-14 07:10 | NUR ---
0710 hrs: I was instructed by am staff counsel to take over this patient who was pronounced at [address] Lacey Roman. 0715 hrs: post mortem care done. 0729 hrs: [facility] called with reference # [id number]. 0750 hrs: family in, provided support, upper denture placed on patient per son Zac and family request.
--- NOTE | 2018-04-14 07:11 | EN ---
Date/Time of Note Date/Time of Note DATE: 04/14/18 TIME: 07:08 Event Note Medicine Medicine Event Note CODE NARDA LABOY was called at approximately 6:52 AM of note patient this is a second code was called on this patient this morning. First code was called at approximately 6:24 AM. And was attended by the ED physician . After pulses were achieved patient was brought down to the ICU. YINKA LABOY was then called again at approximately 6:52 AM or I myself attended the code as the ED physician was in a emergency in the ER and was going to be coming as soon as he could. YINKA LABOY was run with high-quality chest compressions and ACLS protocol. Patient was given multiple rounds of epinephrine as well as bicarb. He had already received multiple epinephrines and other pharmacological inte rventions during the initial code. I did speak with the son over the phone as a code was running in regards to the patient's clinical condition and I did explain to him that this may very well proved to be futile. He reiterated not to intubate the patient. ACLS and CPR was continued however patient was not showing any positive response to the interventions being given. Further aggressive management was considered to be futile and the decision was made at approximately 7:04 a.m. to call the code. Patient was noted to be in asystole. Pronouncement was performed by me, please see pronouncement note. I did speak with the son over the phone and updated him on the patient's unfortunate passing. He states he will be coming in. Dr. Adams was also aware of the status of the YINKA NARDA throughout the code by me. Total critical care time approximately 20 minutes including post code management. BRODERICK YOUNG Apr 14, 2018 07:11
--- NOTE | 2018-04-14 08:54 | QN ---
Documentation Comment Code was called twice this morning according to the notes, patient was e ventually transferred to the intensive care unit, he is a chemical code but compression was tried per family wishes, he and was pronounced at 7 04 am According to notes, patient was witnessed to have seizures overnight even if it does not have a history of seizure disorder. JOSELIN MAK Apr 14, 2018 08:54
--- NOTE | 2018-04-14 09:01 | EN ---
Date/Time of Note Date/Time of Note DATE: 04/14/18 TIME: 09:00 Event Note Medicine Medicine Event Note Pronouncement note: Patient seen and examined at the bedside. Pupils fixed and dilated and nonreactive to light bilaterally. No heart sounds appreciated on auscultation. Patient nonresponsive to vigorous sternal rub or verbal command. Patient pronounced at approximately 7:04 AM. I spoke to the patient's son over the phone and he was aware of the patient's condition. Primary medical team was to be notified by the nursing staff. BRODERICK YOUNG Apr 14, 2018 09:01
--- NOTE | 2018-04-14 09:18 | NUR ---
0654 - PATIENT RECEIVED IN ICU WITH CPR IN PROGRESS WITH FOAM RUBBER MIXER RN, PRIMARY RN, TRANSPORTER, AND RESPIRATORY THERAPY, S/P CODE BLUE X2 ON TELEMETRY. PT IS A CHEMICAL CODE, HOWEVER, FAMILY WAS CONTACTED WHEN PT LOST PULSE INITIALLY AND SON, ADRIAN, INDICATED THAT HE WANTED CHEST COMPRESSIONS/MEDS BUT NO INTUBATION. SEVERAL ROUNDS OF EPI WERE GIVEN IN ADDITION TO BICARB (PLEASE SEE CODE SHEET). DR YOUNG S/W SON ADRIAN ON THE PHONE X2, INDICATED THAT HE WAS ON HIS WAY TO THE HOSPITAL AND TO CONTINUE CPR. PT HOWEVER DID NOT HAVE SUSTAINED ROSC AND CODE WAS CALLED BY DR YOUNG. DR YOUNG PRONOUNCED PT AT 07:04. FAMILY WAS NOTIFIED UPON ARRIVAL AND ESCORTED TO PT ROOM TO SEE PATIENT. POST MORTEM CARE ENDORSED TO [facility].
--- NOTE | 2018-04-14 14:41 | RADRPT ---
Vent Rate: 60 bpm RR Interval: 0 msec [place] Interval: 0 msec QRS Duration: 174 msec QT Interval: 534 msec QTC Interval: 534 msec P-R-T [place]: 0 - -76 - 93 degrees AV sequential or dual chamber electronic pacemaker Electronically Signed By: Eduard Henderson [id number]
--- NOTE | 2018-04-15 16:37 | DES ---
Date/Time of Note Date/Time of Note DATE: 04/15/18 TIME: 16:29 Discharge/ Summary Admission/Discharge Info Admit Date/Time Apr 12, 2018 at 23:32 Date/Time 04/14/2018 at 7 04 AM Final Diagnosis 1. Cardiac arrest 2. ? Sepsis unclear source 3. Chronic congestive heart failure combination of diastolic and systolic. 4. Severe coronary artery disease, 4 vessels, not a surgical candidate because high risk 5. End-stage renal disease, on hemodialysis 6. Hypertension 7. Status post cardiac pacemaker due to episode of bradyarrhythmia that led to syncope and collapse approximately 3 weeks ago. 8. Hyperlipidemia 9. Encephalopathy, toxic versus metabolic. Preliminary Cause of 1. Cardiac arrest 2. Severe coronary artery disease status post NSTEMI 3. Sepsis, unknown etiology 4. End-stage renal disease on hemodialysis 5. Congestive heart failure Admit History Chief complaint: Hypotension History of presenting illness: 82-year-old male with known end-stage renal disease on hemodialysis, severe coronary artery disease not candidate for any intervention on medical management at this point, recently discharged, actually 24 hours prior to this presentation in the ER from group home facility. The patient was discharged on 04/11 after an admission for CHF exacerbation, non-ST elevation TN and hyperkalemia. Patient was treated appropriately and discharged to a group home facility for physical therapy mainly. At the time of discharge she was also discharged on Levaquin for possible right lower lobe pneumonia reported on CAT scan and a WBC of 14.5 at the time. Patient went to group home facility and was sent back within 24 hours with reported hypotension. Patient is severely hypertensive actually on multiple agents, in the emergency department his first lactic acid was normal at 0.8 and within 45 minutes the second lactic acid was up to 2.1. He was given IV fluid boluses and albumin bolus and her blood pressure stabilized. All his blood pressure medications are on hold. Repeat chest x-ray shows improved lung winn, no right lobe infiltrates anymore, atelectasis left lower base. There is no clear source for sepsis at this point but patient is started on broad-spectrum antibiotics given presentation with hemodynamic instability and elevated WBC with lactic acid above 2. Currently on telemetry, patient remains afebrile, WBC/15.5. He is now on cefepime and vancomycin. Source of infection if any is still unclear. CAT scan of the abdomen and pelvis will be done. He is encephalopathic and confused, CT head is pending. He is euvolemic and electrolytes are stable therefore no need for emergent dialysis, next HD will be tomorrow as scheduled. It is unclear if the patient did have an episode of aspiration or genitourinary infection which would be difficult to diagnose since he does not make urine. We will continue broad-spectrum antibiotics including vancomycin. Monitor cardiac enzymes, blood pressure and mental status. Appreciate recommendations from cardiology, nephrology at this time. Hospital Course Patient was admitted to a telemetry bed since he is a chemical code, on admission he had some leukocytosis and lactic acidosis consistent with sepsis but unknown source since his blood cultures remain negative, chest x-ray was actually improved and stable. He was started on broad-spectrum antibiotics. He was hypotensive on admission but blood pressure did improve by hospital day #2. He was again noted to have elevated troponin but was trending down from a recent non-ST elevation TN. Patient seemed fairly euvolemic. He was however ence phalopathic and disoriented. CAT scan of the head was negative for acute bleeding. CAT scan of the abdomen and pelvis was negative for any infections. The patient apparently was witnessed to have seizure-like activities overnight, treated at that time, subsequently a CODE BLUE was called and he was found to be in cardiac arrest. He is a chemical code however compressions were done x1 per family request and subsequently patient and was pronounced at 7:04 AM Pending Labs/Cultures none JOSELIN MAK Apr 15, 2018 16:37
== END 2018-04-14 07:04 | disposition expired | DRG 871 ==
LOC: E/R 20:59 → 6WM 23:32 → CANRESERV 04-13 00:28 → EDBEDREQ 04-13 01:59 → ICU 04-14 06:45
PROVIDERS: ADMIT Internal Medicine; ATTEND Internal Medicine
PROC: 5A12012 Performance of Cardiac Output, Single, Manual (ICD-10-PCS; principal; 2018-04-14)
DX: A41.9 Sepsis, unspecified organism (principal); I21.4 Non-ST elevation (NSTEMI) myocardial infarction; N18.6 End stage renal disease; I50.43 Acute on chronic combined systolic (congestive) and diastolic (congestive) heart failure; G92 Toxic encephalopathy; I13.2 Hypertensive heart and chronic kidney disease with heart failure and with stage 5 chronic kidney disease, or end stage renal disease; E87.2 Acidosis; Z99.2 Dependence on renal dialysis; Z66 Do not resuscitate; E87.5 Hyperkalemia; I25.10 Atherosclerotic heart disease of native coronary artery without angina pectoris; Z95.0 Presence of cardiac pacemaker; D64.9 Anemia, unspecified; J44.9 Chronic obstructive pulmonary disease, unspecified; I46.9 Cardiac arrest, cause unspecified; R56.9 Unspecified convulsions
CPT/HCPCS: 36415; 70450; 71045; 74176; 80048; 80053; 80202; 82550; 82553; 82728; 82962; 83540; 83605; 83735; 84100; 84484; 85025; 85610; 85730; 87040; 87081; 93005; J0692; J1644; J1953; J3370; J7030; P9047; Q4081